=== PATIENT | male | born 1990 | race Caucasian/White ===

== ENCOUNTER 2017-03-01 22:10 | Emergency (ER) | payer OTHER ==
[2017-03-01 22:30] VITALS: BP 138/85; PULSE 64; RESP 18; TEMP 98.5
--- NOTE | 2017-03-01 22:46 | ED ---
ENT HPI - General Chief complaint: Dental/Oral Stated complaint: Dental Time Seen by Provider: 03/01/17 22:34 Source: patient, RN notes reviewed Mode of arrival: ambulatory Limitations: no limitations - History of Present Illness Initial comments: Patient is a 26-year-old male presents to the emergency room for evaluation of dental pain. Patient states been having dental pain for the past 2 weeks. Patient states he does have a broken tooth in that area. Patient does admit to smoking. Patient states the smoking worsened the pain. Patient states he hasn' t seen a dentist in about 2 years. Patient states he hasn't gotten into a dentist yet. Patient denies fevers or chills. Patient states he's having increasing pain. Patient states he's been swishing with mouthwash and taking ibuprofen with no relief of symptoms. Patient denies trouble swallowing. - Related Data Previous Rx's Medication Instructions Recorded Penicillin V Potassium [Pen Vee K] 500 mg PO QID 10 Days 03/01/17 traMADol HCl [Ultram] 50 mg PO Q4H PRN #12 tab 03/01/17 Allergies Allergy/AdvReac Type Severity Reaction Status Date / Time No Known Allergies Allergy Verified 03/01/17 22:49 Review of Systems ROS Statement: Those systems with pertinent positive or pertinent negative responses have been documented in the HPI. ROS Other: All systems not noted in ROS Statement are negative. Past Medical History Past Medical History: No Reported History History of Any Multi-Drug Resistant Organisms: None Reported Past Surgical History: No Surgical Hx Reported Past Psychological History: No Psychological Hx Reported Smoking Status: Current every day smoker Past Alcohol Use History: None Reported Past Drug Use History: None Reported General Exam - General Exam Comments Initial Comments: Sitting in exam room, no acute distress. Limitations: no limitations General appearance: alert, in no apparent distress Head exam: Present: atraumatic, normocephalic, normal inspection Eye exam: Present: normal appearance ENT exam: Present: normal exam Expanded Mouth exam: Present: normal external inspection Teeth exam: Present: dental caries (multiple), fractured tooth # (18), dental tenderness # (18) Throat exam: normal inspection Neck exam: Present: normal inspection Respiratory exam: Present: normal lung sounds bilaterally. Absent: respiratory distress Cardiovascular Exam: Present: regular rate, normal rhythm, normal heart sounds Extremities exam: Present: normal inspection Back exam: Present: normal inspection Neurological exam: Present: alert, oriented X3, CN II-XII intact, normal gait Psychiatric exam: Present: normal affect, normal mood Skin exam: Present: warm, dry, intact, normal color. Absent: rash Course Vital Signs 03/01/17 22:27 Temperature 98.5 F Pulse Rate 64 Respiratory 18 Rate Blood Pressure 138/85 O2 Sat by Pulse 98 Oximetry Medical Decision Making - Medical Decision Making Patient is a 26-year-old male presents emergency room for evaluation of dental pain. Patient does have a fractured tooth on tooth #18. Patient will be sent home with antibiotics and pain medications and advised to follow-up with a dentist. Patient states he seems everything that was discussed with him. Return parameters discussed. Case discussed Dr. Ross. Disposition Clinical Impression: Pain, dental Disposition: HOME SELF-CARE Condition: Good Instructions: Dental Caries (ED), Toothache (ED) Additional Instructions: Please follow up with a dentist. If you do not have a dentist, you may contact [facility]. Phone number is [phone] for existing clients. For new clients you may call [phone]. Another option is you have is the [facility]. Phone number is [phone]. Medications as directed. [place] gargles. Cold fluids can sometimes help with pain as well. Return to the Emergency Room for any worsening or changing symptoms. Use cold compresses to the outside of the face. Prescriptions: Penicillin V Potassium [Pen Vee K] 500 mg PO QID 10 Days traMADol HCl [Ultram] 50 mg PO Q4H PRN #12 tab PRN Reason: Pain Referrals: None,Stated [Primary Care Provider] - 1-2 days Time of Disposition: 22:45
[2017-03-01] MEDS ORDERED: traMADol 50 MG TAB PO STA (22:55)
== END 2017-03-01 23:00 | disposition home or self-care (01) ==
LOC: EC 22:10
DX: K08.89 Other specified disorders of teeth and supporting structures (principal); F17.200 Nicotine dependence, unspecified, uncomplicated
CPT/HCPCS: 99282

== ENCOUNTER → 2021-09-09 | Outpatient (CLI) | payer BC ==
--- NOTE | 2021-09-09 16:02 | XR ---
EXAMINATION TYPE: XR facial bones limited DATE OF EXAM: 09/09/2021 COMPARISON: NONE HISTORY: 31-year-old male S09.93XA,G50.1 FACIAL BONE INJURY TECHNIQUE: 5 views FINDINGS: Orbits appear symmetrical. Nasal septum is midline. No layering fluid seen within the maxillary sinus es. Mandible appears intact. No depressed or related nasal bone fracture. Maxillary spine appears int act. No depressed facial bone fracture identified. IMPRESSION: No radiographically apparent facial bone fracture. If symptoms persist, facial bone CT can be conside red.
== END | disposition home or self-care (01) ==
LOC: RADXRYALE 13:13
PROVIDERS: ATTEND Family Medicine
DX: S09.93XA Unspecified injury of face, initial encounter (principal)
CPT/HCPCS: 70140